=== PATIENT | male | born 1970 | race Hispanic/Latino ===

== ENCOUNTER 2017-08-15 17:00 | Emergency (ER) | payer BC, OTHER ==
--- NOTE | 2017-08-15 18:10 | RAD REPORT ---
EXAM DESCRIPTION: RAD - Chest Single View - 08/15/2017 5:53 pm CLINICAL HISTORY: Mid sternal chest pain COMPARISON: None. TECHNIQUE: AP portable chest image was obtained 1743 hours . FINDINGS: Lungs are clear. Heart and vasculature are normal. No measurable pleural effusion and no p neumothorax. No gross bony abnormality seen. No acute aortic findings suspected. IMPRESSION: No acute cardiopulmonary process.
[2017-08-15 18:13] LABS: Absolute Monocytes 0.5 K/uL (0.1-1.3); Absolute Neutrophil 3.7 K/uL (1.8-8.0); Basophils % 0.7 % (0-1.3); Eosinophils % 1.3 % (0-4.4); Hematocrit 40.6 % (39.6-49.0); MCH 30.2 pg (27.0-35.0); MCV 91.1 fL (80-100); MPV 8.6 fL (7.6-11.3); Monocytes % 8.6 % (3.3-12.3); RBC Red Blood Cell Count 4.45 M/uL (4.33-5.43)
[2017-08-15 18:22] LABS: Bicarbonate 27 mEq/L (21-31); Glucose Level 100 mg/dL (65-120); Potassium 3.5 mEq/L (3.6-5.0); Sodium Level 135 mEq/L (135-145)
[2017-08-15 18:29] LABS: ALT/SGPT 17 IU/L (10-60); AST/SGOT 16 IU/L (10-42); Albumin 4.6 g/dL (3.2-5.5); Alkaline Phosphatase 64 IU/L (42-121); BUN Blood Urea Nitrogen 21 mg/dL (6-20); Bilirubin Direct < 0.1 mg/dL (0-0.2); Bilirubin Total 0.5 mg/dL (0.3-1.2); Creatine Phosphokinase 177 IU/L (22-269); Magnesium 1.8 mg/dL (1.8-2.5); Protein, Total 8.1 g/dL (6.0-8.3)
[2017-08-15 18:30] LABS: Protime INR 1.03
[2017-08-15 18:33] LABS: CKMB Creatine Kinase MB 2.9 ng/ml (0.3-4.0)
[2017-08-15] MEDS ORDERED: PANTOPRAZOLE 40 MG INJ ONE (19:27)
--- NOTE | 2017-08-15 20:59 | ER ---
Nurse's Notes [facility] Name: Willie Perez Jr Age: 46 yrs Sex: Male : 1970 Arrival Date: 08/15/2017 Time: 17:05 Bed 23 Private MD: Shayne Akbar B Diagnosis: Chest pain, unspecified Presentation: 08/15 17:20 Presenting complaint: Patient states: Pt. c/o mid sternal chest pain, onset this rk2 morning. Denies radiating pain, no N/V/D. No cardiac hx. Pain increases with deep breath. Transition of care: patient was not received from another setting of care. Onset of symptoms was August 15, 2017. Initial Sepsis Screen: Does the patient meet any 2 criteria? No. Patient's initial sepsis screen is negative. Does the patient have a suspected source of infection? No. Patient's initial sepsis screen is negative. Care prior to arrival: None. 17:20 Method Of Arrival: Ambulatory rk2 17:20 Acuity: SANIA 3 rk2 Historical: - Allergies: 17:23 Vicodin; rk2 - Immunization history:: Pneumococcal vaccine is not up to date, Flu vaccine is up to date. - Social history:: Smoking status: Patient/guardian denies using tobacco, never smoked. Screenin:43 Abuse screen: Denies threats or abuse. Denies injuries from another. Nutritional aj1 screening: No deficits noted. Tuberculosis screening: No symptoms or risk factors identified. 21:12 Fall Risk None identified. aj1 Assessment: 17:43 General: Appears in no apparent distress. uncomfortable, Behavior is calm, cooperative, aj1 appropriate for age. Pain: Complains of pain in mid-sternal area Pain does not radiate. Pain currently is 6 out of 10 on a pain scale. Quality of pain is described as tightness Pain began at 0630 this morning Is continuous, Alleviated by nothing. Aggravated by nothing. Neuro: Level of Consciousness is awake, alert, obeys commands, Oriented to person, place, time, situation, Speech is normal, Facial symmetry appears normal. Cardiovascular: Reports chest pain, nausea, palpitations, shortness of breath, Denies diaphoresis, lightheadedness, syncope, vomiting, Heart tones S1 S2 present Patient's skin is warm and dry. Rhythm is regular Chest pain is described as Pain is 6 out of 10 on a pain scale. quality is tightness is located in substernal area began at 0630 this morning. Respiratory: Airway is patent Respiratory effort is even, unlabored, Respiratory pattern is regular, symmetrical, Breath sounds are clear. GI: No signs and/or symptoms were reported involving the gastrointestinal system. : No signs and/or symptoms were reported regarding the genitourinary system. EENT: No signs and/or symptoms were reported regarding the EENT system. Derm: No signs and/or symptoms reported regarding the dermatologic system. Skin is pink, warm \T\ dry. normal. Musculoskeletal: No signs and/or symptoms reported regarding the musculoskeletal system. Circulation, motion, and sensation intact. 18:45 Reassessment: Patient appears in no apparent distress at this time. No changes from aj1 previously documented assessment. Patient and/or family updated on plan of care and expected duration. Pain level reassessed. Patient is alert, oriented x 3, equal unlabored respirations, skin warm/dry/pink. 19:32 Reassessment: Patient appears in no apparent distress at this time. No changes from aj1 previously documented assessment. Patient and/or family updated on plan of care and expected duration. Pain level reassessed. Patient is alert, oriented x 3, equal unlabored respirations, skin warm/dry/pink. 20:40 Reassessment: Patient appears in no apparent distress at this time. No changes from aj1 previously documented assessment. Patient and/or family updated on plan of care and expected duration. Pain level reassessed. Patient is alert, oriented x 3, equal unlabored respirations, skin warm/dry/pink. 21:11 Reassessment: Patient appears in no apparent distress at this time. No changes from aj1 previously documented assessment. Patient and/or family updated on plan of care and expected duration. Pain level reassessed. Patient is alert, oriented x 3, equal unlabored respirations, skin warm/dry/pink. Vital Signs: 17:23 Pulse 78; Resp 17; Temp 99.2; Pulse Ox 97% on R/A; Weight 90.72 kg; Pain 6/10; rk2 18:15 BP 145 / 92; Pulse 68; Resp 18; Pulse Ox 97% ; aj1 19:33 BP 135 / 93; Pulse 64; Resp 18; Pulse Ox 96% on R/A; aj1 20:40 BP 128 / 89; Pulse 66; Resp 18; Pulse Ox 99% ; aj1 ED Course: 17:05 Patient arrived in ED. mr 17:05 Shayne Akbar MD is Private Physician. mr 17:22 Triage completed. rk2 17:34 Lisseth Sheikh, RN is Primary Nurse. aj1 17:38 Maricarmen Hall FNP-C [facility]. kb 17:38 Lalit Sommers MD is Attending Physician. kb 17:43 Patient has correct armband on for positive identification. pvc monitor on. Pulse aj1 ox on. NIBP on. 17:43 No provider procedures requiring assistance completed. Patient maintains SpO2 aj1 saturation greater than 95% on room air. 17:47 Arm band placed on. aj1 17:51 X-ray completed. Portable x-ray completed in exam room. Patient tolerated procedure ml well. 17:52 XRAY Chest (1 view) In Process Unspecified. EDMS 18:00 Inserted saline lock: 18 gauge in right antecubital area, using aseptic technique. aj1 Blood collected. 21:11 IV discontinued, intact, bleeding controlled, No redness/swelling at site. Pressure aj1 dressing applied. Administered Medications: 19:31 Drug: ProTONIX 40 mg Route: IVP; Site: right antecubital; aj1 20:04 Follow up: Response: No adverse reaction aj1 Outcome: 20:58 Discharge ordered by . kb 21:12 Discharged to home ambulatory. aj1 21:12 Condition: good 21:12 Discharge instructions given to patient, Instructed on discharge instructions, follow up and referral plans. medication usage, Demonstrated understanding of instructions, follow-up care. 21:13 Patient left the ED. aj1 Signatures: Dispatcher [employer] EDUT Maricarmen Hall, BHARATH VALDEZ-Lisseth Mariano, RN RN aj1 Guadalupe Acevedo Barbara Fournier Rhonda RN RN rk2
--- NOTE | 2017-08-15 20:59 | EDPHYS ---
Physician Documentation [facility] Name: Willie Perez Jr Age: 46 yrs Sex: Male : 1970 Arrival Date: 08/15/2017 Time: 17:05 Bed 23 Private MD: Shayne Akbar B ED Physician Lalit Sommers HPI: 08/15 17:52 This 46 yrs old Male presents to ER via Ambulatory with complaints of Chest kb Tightness, Shortness Of Breath, Other. 17:52 The patient or guardian reports chest pain that is located primarily in the substernal kb area. Onset: this morning, at 06:30. The pain does not radiate. Associated signs and symptoms: Pertinent positives: palpitations, shortness of breath. The chest pain is described as a heaviness. Duration: The patient or guardian reports a single episode, that is still ongoing. Modifying factors: The symptoms are alleviated by nothing. the symptoms are aggravated by nothing. Severity of pain: At its worst the pain was moderate in the emergency department the pain is unchanged. The patient has not experienced similar symptoms in the past. The patient has not recently seen a physician. Historical: - Allergies: 17:23 Vicodin; rk2 - Immunization history:: Pneumococcal vaccine is not up to date, Flu vaccine is up to date. - Social history:: Smoking status: Patient/guardian denies using tobacco, never smoked. ROS: 17:52 Constitutional: Negative for fever, chills, and weight loss, Abdomen/GI: Negative for kb abdominal pain, nausea, vomiting, diarrhea, and constipation, Back: Negative for injury and pain, : Negative for injury, bleeding, discharge, and swelling, MS/Extremity: Negative for injury and deformity, Skin: Negative for injury, rash, and discoloration, Neuro: Negative for headache, weakness, numbness, tingling, and seizure. 17:52 Cardiovascular: Positive for chest pain, palpitations, Negative for edema, orthopnea, paroxysmal nocturnal dyspnea. 17:52 Respiratory: Positive for shortness of breath, Negative for cough, dyspnea on exertion, hemoptysis, orthopnea, pleurisy, sputum production, wheezing. Exam: 17:52 Constitutional: This is a well developed, well nourished patient who is awake, alert, kb and in no acute distress. Head/Face: Normocephalic, atraumatic. Chest/axilla: Normal chest wall appearance and motion. Nontender with no deformity. No lesions are appreciated. Cardiovascular: Regular rate and rhythm with a normal S1 and S2. No gallops, murmurs, or rubs. Normal PMI, no JVD. No pulse deficits. Respiratory: Lungs have equal breath sounds bilaterally, clear to auscultation and percussion. No rales, rhonchi or wheezes noted. No increased work of breathing, no retractions or nasal flaring. Abdomen/GI: Soft, non-tender, with normal bowel sounds. No distension or tympany. No guarding or rebound. No evidence of tenderness throughout. Back: No spinal tenderness. No costovertebral tenderness. Full range of motion. Skin: Warm, dry with normal turgor. Normal color with no rashes, no lesions, and no evidence of cellulitis. MS/ Extremity: Pulses equal, no cyanosis. Neurovascular intact. Full, normal range of motion. Neuro: Awake and alert, GCS 15, oriented to person, place, time, and situation. Cranial nerves II-XII grossly intact. Motor strength 5/5 in all extremities. Sensory grossly intact. Cerebellar exam normal. Normal gait. Vital Signs: 17:23 Pulse 78; Resp 17; Temp 99.2; Pulse Ox 97% on R/A; Weight 90.72 kg; Pain 6/10; rk2 18:15 BP 145 / 92; Pulse 68; Resp 18; Pulse Ox 97% ; aj1 19:33 BP 135 / 93; Pulse 64; Resp 18; Pulse Ox 96% on R/A; aj1 20:40 BP 128 / 89; Pulse 66; Resp 18; Pulse Ox 99% ; aj1 MDM: 17:38 Patient medically screened. kb 17:52 RASHMI Risk Score: TOTAL SCORE = 0. Data reviewed: vital signs, nurses notes. Data kb interpreted: Pulse oximetry: on room air is 97 %. Interpretation: normal. 18:33 ED course: HEART score - 0. kb 20:58 Counseling: I had a detailed discussion with the patient and/or guardian regarding: the kb historical points, exam findings, and any diagnostic results supporting the discharge/admit diagnosis, lab results, radiology results, the need for outpatient follow up, a superior court clerk, a family practitioner, to return to the emergency department if symptoms worsen or persist or if there are any questions or concerns that arise at home. Special discussion: Based on the patient's history, exam, and Dx evaluation, there is no indication for emergent intervention or inpatient Tx. It is understood by the patient/guardian that if the Sx's persist or worsen they need to return immediately for re-evaluation. 08/15 17:41 Order name: Basic Metabolic Panel kb 08/15 17:41 Order name: BNP; Complete Time: 18:32 kb 08/15 17:41 Order name: CBC with Diff; Complete Time: 18:25 kb 08/15 17:41 Order name: Ckmb kb 08/15 17:41 Order name: CPK kb 08/15 17:41 Order name: LFT's kb 08/15 17:41 Order name: Magnesium; Complete Time: 18:36 kb 08/15 17:41 Order name: PT-INR; Complete Time: 18:31 kb 08/15 17:41 Order name: Ptt, Activated; Complete Time: 18:31 kb 08/15 17:41 Order name: Troponin (emerg Dept Use Only); Complete Time: 18:29 kb 08/15 17:42 Order name: Basic Metabolic Panel; Complete Time: 18:36 EDMS 08/15 17:42 Order name: CKMB Creatine Kinase MB; Complete Time: 18:36 EDMS 08/15 17:42 Order name: Creatine Phosphokinase; Complete Time: 18:36 EDMS 08/15 17:42 Order name: Liver (Hepatic) Function; Complete Time: 18:36 EDMS 08/15 17:41 Order name: XRAY Chest (1 view); Complete Time: 18:12 kb 08/15 17:41 Order name: EKG; Complete Time: 17:42 kb 08/15 17:41 Order name: Cardiac monitoring; Complete Time: 18:04 kb 08/15 17:41 Order name: EKG - Nurse/Tech; Complete Time: 17:49 kb 08/15 17:41 Order name: IV Saline Lock; Complete Time: 18:04 kb 08/15 17:41 Order name: Labs collected and sent; Complete Time: 18:04 kb 08/15 17:41 Order name: O2 Per Protocol; Complete Time: 18:04 kb 08/15 17:41 Order name: O2 Sat Monitoring; Complete Time: 18:04 kb 08/15 20:02 Order name: Troponin (emerg Dept Use Only); Complete Time: 20:57 kb 08/15 20:02 Order name: EKG; Complete Time: 20:02 kb 08/15 20:02 Order name: EKG - Nurse/Tech; Complete Time: 20:41 kb Administered Medications: 19:31 Drug: ProTONIX 40 mg Route: IVP; Site: right antecubital; aj1 20:04 Follow up: Response: No adverse reaction aj1 Disposition: 08/16 07:49 Co-signature as Attending Physician, Lalit Sommers MD I agree with the assessment and wero plan of care. Disposition: 08/15/17 20:58 Discharged to Home. Impression: Chest pain, unspecified. - Condition is Stable. - Discharge Instructions: Nonspecific Chest Pain, [id number]. - Medication Reconciliation Form, Thank You Letter, Antibiotic Education, Prescription Opioid Use form. - Follow up: Emergency Department; When: As needed; Reason: Worsening of condition. Follow up: Private Physician; When: 2 - 3 days; Reason: Recheck today's complaints, Continuance of care, Re-evaluation by your physician. Signatures: Dispatcher [employer] Maricarmen Winter, CONSULTING SENIOR PRACTICE DIRECTOR-C CONSULTING SENIOR PRACTICE DIRECTOR-Lisseth Mariano, RN RN aj1 Lalit Sommers MD MD cha Kidder, Rhonda, RN RN rk2
--- NOTE | 2017-08-15 22:15 | EKG ---
Test Date: 2017-08-15 Test Time: 17:41:41 Scratcher Tender: DORI MEASUREMENT RESULTS: Intervals: Rate: 58 TN: 168 QRSD: 94 QT: 422 QTc: 414 [place]: P: 33 TN: 168 QRS: 8 T: 43 INTERPRETIVE STATEMENTS: Sinus bradycardia Otherwise normal ECG No previous ECG available for comparison Electronically Signed On 08-15-17 22:14:34 CDT by Von [place]
--- NOTE | 2017-08-16 11:26 | EKG ---
Test Date: 2017-08-15 Test Time: 20:18:10 Diesel Truck Crane Operator: MEASUREMENT RESULTS: Intervals: Rate: 58 VA: 174 QRSD: 92 QT: 452 QTc: 443 [place]: P: 29 VA: 174 QRS: 11 T: 44 INTERPRETIVE STATEMENTS: Sinus bradycardia Otherwise normal ECG Compared to ECG 08/15/2017 17:41:41 No significant changes Electronically Signed On 08-16-17 11:24:00 CDT by Loc Melendrez
== END 2017-08-15 21:13 | disposition home or self-care (01) ==
LOC: ER 17:00
DX: R07.9 Chest pain, unspecified (principal); Z88.6 Allergy status to analgesic agent
CPT/HCPCS: 36415; 71045; 80048; 80076; 82550; 82553; 83735; 83880; 84484; 85025; 85610; 85730; 93005; 96374; 99285; C9113

== ENCOUNTER 2019-03-17 18:18 | Emergency (ER) | payer BC ==
[2019-03-17] MEDS ORDERED: METOCLOPRAMIDE 10 MG/2mL INJ ONE (19:06)
[2019-03-17] MEDS ORDERED: NA CHLORIDE 0.9% 1,000 ML ONE (19:06)
[2019-03-17] MEDS ORDERED: KETOROLAC 30 MG/ML INJ ONE (19:06)
[2019-03-17] MEDS ORDERED: DIPHENHYDRAMINE 50 MG/ML VIAL ONE (19:06)
--- NOTE | 2019-03-17 19:18 | RAD REPORT ---
EXAM DESCRIPTION: CT - Head Brain Wo Cont - 03/17/2019 7:11 pm CLINICAL HISTORY: HEADACHE Headache, drowsiness COMPARISON: No comparisons TECHNIQUE: All CT scans are performed using dose optimization technique as appropriate and may inclu de automated exposure control or mA/KV adjustment according to patient size. FINDINGS: No intracranial hemorrhage, hydrocephalus or extra-axial fluid collection.No areas of brai n edema or evidence of midline shift. The paranasal sinuses and mastoids are clear. The calvarium is intact. IMPRESSION: No acute intracranial abnormality.
--- NOTE | 2019-03-17 20:27 | ER ---
Nurse's Notes [facility] Name: Willie Perez Jr Age: 48 yrs Sex: Male : 1970 Arrival Date: 03/17/2019 Time: 18:19 Bed 7 Private MD: Shayne Akbar B Diagnosis: Headache;Nausea and vomiting Presentation: 03/17 18:35 Presenting complaint: Patient states: Headache to frontal and occipital area, reports ph hx of headaches r/t pituitary tumor, states, " They aren't usually this bad though and I've been throwing up." Report N/V, chills and dizziness, symptoms began at approx 1730. Transition of care: patient was not received from another setting of care. Onset of symptoms was March 17, 2019. Risk Assessment: Do you want to hurt yourself or someone else? Patient reports no desire to harm self or others. Initial Sepsis Screen: Does the patient meet any 2 criteria? No. Patient's initial sepsis screen is negative. Does the patient have a suspected source of infection? No. Patient's initial sepsis screen is negative. Care prior to arrival: None. 18:35 Method Of Arrival: Ambulatory ph 18:35 Acuity: SANIA 3 ph Triage Assessment: 19:51 Headache History: The patient has had previous headaches and this one is different than rv previous episodes, and this one is more severe than previous episodes. General: Appears in no apparent distress. ill, Behavior is calm, cooperative. Pain: Complains of pain in head Pain Pain began suddenly, Also complains of photophobia, inability to perform activities of daily living. Historical: - Allergies: 18:38 Vicodin; ph - PMHx: 18:38 pituitary tumor; Kidney stones; ph - PSHx: 18:38 Lithotripsy; Hernia repair; ph - Immunization history:: Adult Immunizations up to date. - Social history:: Smoking status: unknown. - Ebola Screening: : No symptoms or risks identified at this time. Screenin:50 Abuse screen: Denies threats or abuse. Denies injuries from another. Nutritional rv screening: No deficits noted. Tuberculosis screening: No symptoms or risk factors identified. Fall Risk None identified. Assessment: 19:08 Reassessment: patient is in the CT scan at the moment. rv 19:49 General: Appears in no apparent distress. comfortable, Behavior is calm, cooperative. rv Pain: Complains of pain in head. Neuro: Level of Consciousness is awake, alert, obeys commands, Oriented to person, place, time, situation. Neuro: Reports headache that is the "worst ever". Cardiovascular: Patient's skin is warm and dry. Respiratory: Airway is patent. GI: No signs and/or symptoms were reported involving the gastrointestinal system. : No signs and/or symptoms were reported regarding the genitourinary system. EENT: No signs and/or symptoms were reported regarding the EENT system. Derm: Skin is intact. Musculoskeletal: No signs and/or symptoms reported regarding the musculoskeletal system. 20:18 Reassessment: Patient appears in no apparent distress at this time. Patient and/or rv family updated on plan of care and expected duration. Pain level reassessed. Patient is alert, oriented x 3, equal unlabored respirations, skin warm/dry/pink. pain is decreased by half, and pressure is gone. as verbalized by the patient when asked about the headache. Patient states feeling better. Patient states symptoms have improved. Vital Signs: 18:38 BP 128 / 90; Pulse 73; Resp 18; Temp 97.7; Pulse Ox 98% on R/A; Weight 88.45 kg; Height ph 5 ft. 8 in. (172.72 cm); Pain 6/10; 19:52 BP 124 / 87; Pulse 68; Resp 16; Pulse Ox 96% on R/A; rv 20:16 Pain 3/10; rv 20:17 BP 120 / 75; Pulse 65; Resp 16; Pulse Ox 96% on R/A; rv 20:17 Pain 3/10; rv 20:17 Pain 3/10; rv 18:38 Body Mass Index 29.65 (88.45 kg, 172.72 cm) ph ED Course: 18:19 Patient arrived in ED. mr 18:19 Shayne Akbar MD is Private Physician. mr 18:37 Peterson [facility]. pm1 18:37 Al Batista MD is Attending Physician. pm1 18:37 Triage completed. ph 18:39 Arm band placed on Patient placed in an exam room, on a stretcher. ph 19:03 Randell Travis RN is Primary Nurse. rv 19:11 CT completed. Patient tolerated procedure well. Patient moved back from CT. mw3 19:11 CT Head Brain wo Cont In Process Unspecified. EDMS 19:33 Inserted saline lock: 20 gauge in right antecubital area, using aseptic technique. rv 19:51 Patient has correct armband on for positive identification. Placed in gown. Bed in low rv position. Call light in reach. Side rails up X 1. Pulse ox on. NIBP on. 20:42 No provider procedures requiring assistance completed. IV discontinued, intact, rv bleeding controlled, No redness/swelling at site. Pressure dressing applied. Administered Medications: 19:32 Drug: TORadol - Ketorolac 15 mg Route: IVP; Site: right antecubital; rv 20:16 Follow up: Pain 3/10 Adult; Response: No adverse reaction; Marked relief of symptoms; rv Pain is decreased 19:32 Drug: NS 0.9% 1000 ml Route: IV; Rate: 1000 ml; Site: right antecubital; rv 20:43 Follow up: IV Status: Completed infusion rv 19:33 Drug: Reglan 10 mg Route: IVP; Site: right antecubital; rv 20:17 Follow up: Pain 3/10 Adult; Response: No adverse reaction; Marked relief of symptoms rv 19:33 Drug: Benadryl 12.5 mg Route: IVP; Site: right antecubital; rv 20:17 Follow up: Pain 3/10 Adult; Response: No adverse reaction; Marked relief of symptoms rv Outcome: 20:26 Discharge ordered by MD. pm1 20:43 Discharged to home ambulatory, with family. rv 20:43 Condition: improved 20:43 Discharge instructions given to patient, family, Instructed on discharge instructions, follow up and referral plans. medication usage, Demonstrated understanding of instructions, follow-up care, medications, Prescriptions given X 2. 20:47 Patient left the ED. rv Signatures: Dispatcher [employer] EDAR Delaney Acevedo Patricia, RN RN ph Peterson Olson, EDWARDO SHERIFF'S SERGEANT pm1 Mattie Flores mw3 Randell Travis RN RN rv
--- NOTE | 2019-03-17 20:27 | EDPHYS ---
Physician Documentation [facility] Name: Willie Perez Jr Age: 48 yrs Sex: Male : 1970 Arrival Date: 03/17/2019 Time: 18:19 Bed 7 Private MD: Shayne Akbar B ED Physician Al Batista HPI: 03/17 19:36 This 48 yrs old Male presents to ER via Ambulatory with complaints of pm1 Headache, Vomiting. 19:36 The patient complains of pain to the left side of head. The patient describes the pm1 headache as aching, constant. Onset: The symptoms/episode began/occurred today. Associated signs and symptoms: Pertinent positives: nausea, vomiting, Pertinent negatives: neck stiffness, rash, sinus congestion, sinus tenderness, weakness. Severity of symptoms: in the emergency department the pain is unchanged. Headache History: Other Headache with pituitary tumor in the past. Has been taking medication for 1 year to shrink the tumor. Has MRI scheduled on Tuesday. The symptoms are alleviated by nothing. the symptoms are aggravated by nothing. Went fishing today. Had 5 beers throughout the day. Historical: - Allergies: 18:38 Vicodin; ph - PMHx: 18:38 pituitary tumor; Kidney stones; ph - PSHx: 18:38 Lithotripsy; Hernia repair; ph - Immunization history:: Adult Immunizations up to date. - Social history:: Smoking status: unknown. - Ebola Screening: : No symptoms or risks identified at this time. ROS: 19:54 Constitutional: Negative for fever, chills, and weight loss, Eyes: Negative for injury, pm1 pain, redness, and discharge, ENT: Negative for injury, pain, and discharge, Neck: Negative for injury, pain, and swelling, Cardiovascular: Negative for chest pain, palpitations, and edema, Respiratory: Negative for shortness of breath, cough, wheezing, and pleuritic chest pain. 19:54 Back: Negative for injury and pain, : Negative for injury, bleeding, discharge, and swelling, MS/Extremity: Negative for injury and deformity, Skin: Negative for injury, rash, and discoloration. 19:54 Abdomen/GI: Positive for nausea and vomiting, Negative for abdominal pain, diarrhea, constipation. 19:54 Neuro: Positive for headache, Negative for altered mental status, dizziness, numbness, tingling, weakness. Exam: 19:54 Constitutional: This is a well developed, well nourished patient who is awake, alert, pm1 and in no acute distress. Head/Face: Normocephalic, atraumatic. Eyes: Pupils equal round and reactive to light, extra-ocular motions intact. Lids and lashes normal. Conjunctiva and sclera are non-icteric and not injected. Cornea within normal limits. Periorbital areas with no swelling, redness, or edema. ENT: Nares patent. No nasal discharge, no septal abnormalities noted. Tympanic membranes are normal and external auditory canals are clear. Oropharynx with no redness, swelling, or masses, exudates, or evidence of obstruction, uvula midline. Mucous membranes moist. Neck: Trachea midline, no thyromegaly or masses palpated, and no cervical lymphadenopathy. Supple, full range of motion without nuchal rigidity, or vertebral point tenderness. No Meningismus. Chest/axilla: Normal chest wall appearance and motion. Nontender with no deformity. No lesions are appreciated. Cardiovascular: Regular rate and rhythm with a normal S1 and S2. No gallops, murmurs, or rubs. Normal PMI, no JVD. No pulse deficits. Respiratory: Lungs have equal breath sounds bilaterally, clear to auscultation and percussion. No rales, rhonchi or wheezes noted. No increased work of breathing, no retractions or nasal flaring. Abdomen/GI: Soft, non-tender, with normal bowel sounds. No distension or tympany. No guarding or rebound. No evidence of tenderness throughout. Back: No spinal tenderness. No costovertebral tenderness. Full range of motion. Skin: Warm, dry with normal turgor. Normal color with no rashes, no lesions, and no evidence of cellulitis. MS/ Extremity: Pulses equal, no cyanosis. Neurovascular intact. Full, normal range of motion. 19:54 Neuro: Orientation: is normal, Mentation: is normal, Cranial nerves: CN II- XII are normal as tested, Cerebellar function: normal finger to nose testing, Motor: is normal, moves all fours. Vital Signs: 18:38 BP 128 / 90; Pulse 73; Resp 18; Temp 97.7; Pulse Ox 98% on R/A; Weight 88.45 kg; Height ph 5 ft. 8 in. (172.72 cm); Pain 6/10; 19:52 BP 124 / 87; Pulse 68; Resp 16; Pulse Ox 96% on R/A; rv 20:16 Pain 3/10; rv 20:17 BP 120 / 75; Pulse 65; Resp 16; Pulse Ox 96% on R/A; rv 20:17 Pain 3/10; rv 20:17 Pain 3/10; rv 18:38 Body Mass Index 29.65 (88.45 kg, 172.72 cm) ph MDM: 18:38 Patient medically screened. pm1 19:55 Data reviewed: vital signs. Data interpreted: Pulse oximetry: on room air is 96 %. pm1 Interpretation: normal. 20:25 Counseling: I had a detailed discussion with the patient and/or guardian regarding: the pm1 historical points, exam findings, and any diagnostic results supporting the discharge/admit diagnosis, radiology results, the need for outpatient follow up, to return to the emergency department if symptoms worsen or persist or if there are any questions or concerns that arise at home. 03/17 18:55 Order name: CT Head Brain wo Cont; Complete Time: 19:25 pm1 03/17 18:55 Order name: IV Saline Lock; Complete Time: 19:33 pm1 Administered Medications: 19:32 Drug: TORadol - Ketorolac 15 mg Route: IVP; Site: right antecubital; rv 20:16 Follow up: Pain 3/10 Adult; Response: No adverse reaction; Marked relief of symptoms; rv Pain is decreased 19:32 Drug: NS 0.9% 1000 ml Route: IV; Rate: 1000 ml; Site: right antecubital; rv 20:43 Follow up: IV Status: Completed infusion rv 19:33 Drug: Reglan 10 mg Route: IVP; Site: right antecubital; rv 20:17 Follow up: Pain 3/10 Adult; Response: No adverse reaction; Marked relief of symptoms rv 19:33 Drug: Benadryl 12.5 mg Route: IVP; Site: right antecubital; rv 20:17 Follow up: Pain 3/10 Adult; Response: No adverse reaction; Marked relief of symptoms rv Disposition: 03/18 07:13 Co-signature as Attending Physician, Al Batista MD I agree with the assessment and kdr plan of care. Disposition: 03/17/19 20:26 Discharged to Home. Impression: Headache, Nausea and vomiting. - Condition is Stable. - Discharge Instructions: General Headache Without Cause. - Prescriptions for Fiorinal 50- 325-40 mg Oral Capsule - take 1 capsule by ORAL route every 4 hours As needed - not to exceed 6 capsules per day; 20 capsule. Zofran 4 mg Oral Tablet - take 1 tablet by ORAL route every 12 hours As needed; 20 tablet. - Medication Reconciliation Form, Thank You Letter, Antibiotic Education, Prescription Opioid Use form. - Follow up: Emergency Department; When: As needed; Reason: Worsening of condition. Follow up: Private Physician; When: 2 - 3 days; Reason: Recheck today's complaints, Continuance of care, Re-evaluation by your physician. - Problem is new. - Symptoms have improved. Signatures: Dispatcher [employer] EDMS Al Batista MD MD kdr Hall, Patricia, RN RN Peterson Olson, EDWARDO PARALEGAL ASSISTANT pm1 Randell Travis RN RN rv Corrections: (The following items were deleted from the chart) 03/17 20:47 20:26 03/17/2019 20:26 Discharged to Home. Impression: Headache; Nausea and vomiting. rv Condition is Stable. Forms are Medication Reconciliation Form, Thank You Letter, Antibiotic Education, Prescription Opioid Use. Follow up: Emergency Department; When: As needed; Reason: Worsening of condition. Follow up: Private Physician; When: 2 - 3 days; Reason: Recheck today's complaints, Continuance of care, Re-evaluation by your physician. Problem is new. Symptoms have improved. pm1
[2019-03-17 21:18] VITALS: TEMP 97.7
[2019-03-17 21:20] VITALS: O2SAT 96
[2019-03-17 21:22] VITALS: BP 120/75
== END 2019-03-17 20:47 | disposition home or self-care (01) ==
LOC: ER 18:18
DX: R11.2 Nausea with vomiting, unspecified (principal); Z88.5 Allergy status to narcotic agent
CPT/HCPCS: 96361; 70450; 96375; 96374; 99284; J2765; J1200; J7030